=== PATIENT | female | born 1990 | race Hispanic/Latino ===

== ENCOUNTER → 2019-06-18 | Outpatient (CLI) | payer BC, MEDICAID ==
[~2019-06-18] VITALS: Ht 165.1 cm; Wt 87.0 kg
[~2019-06-18] MED LIST: LACTATED RINGERS 1000ML 1,000 ML IV SCH; PNV1TABL17 PO
[2019-06-18 10:13] VITALS: BP 122/71
[2019-06-18 10:19] LABS: BASOPHILS % (AUTO) 0.6 % (0.0-5.0); EOSINOPHILS % (AUTO) 2.7 % (0.0-8.0); HEMATOCRIT 42.5 % (36-48); LYMPHOCYTES % (AUTO) 30.7 % (21.0-51.0); MEAN CORPUSCULAR HEMOGLOBIN 28.2 pg (27.0-33.0); MEAN CORPUSCULAR HGB CONC 33.6 g/dL (32.0-36.0); MEAN CORPUSCULAR VOLUME 83.9 fL (79-99); NUCLEATED RED BLOOD CELLS 0.1 % (0.0-0.19); PLATELET COUNT (AUTO) 181 K/uL (130-400); RED BLOOD CELL COUNT(AUTO) 5.07 MIL/uL (4.00-5.50); RED CELL DISTRIBUTION WIDTH 16.3 % (11.0-15.5); WHITE BLOOD COUNT (AUTO) 5.6 K/uL (4.8-10.8)
== END ==
LOC: DAH 10:00 → EDSTATUS 06-22 13:00
PROVIDERS: ATTEND Specialist
DX: Z01.818 Encounter for other preprocedural examination (principal); Z79.899 Other long term (current) drug therapy
CPT/HCPCS: 36415; 84703; 85025; 86850; 86900; 86901; A6260

== ENCOUNTER 2021-07-01 09:33 | Observation (INO) | payer BC, MEDICAID ==
[~2021-07-01] VITALS: Ht 160 cm; Wt 93.9 kg
[2021-07-01 10:15] LABS: APPEARANCE,URINE Cloudy (CLEAR); BILIRUBIN,URINE Negative (NEGATIVE); COLOR,URINE Dark Yellow (YELLOW); GLUCOSE, URINE (UA) Negative (NEGATIVE); KETONES,URINE Trace mg/dL (NEGATIVE); LEUKOCYTE ESTERASE ,URINE Small (NEGATIVE); NITRATE,URINE Negative (NEGATIVE); OCCULT BLOOD,URINE Negative (NEGATIVE); PH,URINE 6.5 (5.0-8.0); PROTEIN,URINE Trace mg/dL (NEGATIVE)
[2021-07-01 10:36] LABS: BACTERIA,URINE Few /HPF (None Seen); RBC,URINE 0-1 /HPF (0-1)
[2021-07-01] MEDS: LACTATED RINGERS 1000ML 1,000 ML IV SCH ×3 (11:11→23:05)
[2021-07-01] MEDS: DEXAMETHASONE SOD PHOSPHATE 4 MG/ML 1ML VIAL IM SCH ×3 (11:11→22:54)
[2021-07-01] MEDS: GUAIFENESIN-DM 200/20 MG 10 ML PO PRN ×3 (11:50→22:53)
[2021-07-01] MEDS ORDERED: DEXAMETHASONE SOD PHOSPHATE 4 MG/ML 1ML VIAL IM SCH (12:00)
[2021-07-01 12:26] VITALS: BP 112/67
[2021-07-01] MEDS ORDERED: PREN-154 PO (12:37)
[2021-07-01 17:04] VITALS: BP 128/62
[2021-07-01 19:44] VITALS: BP_SYST 110; BP_SYST 120; BP_DIAS 66; BP_DIAS 71
[2021-07-02 00:19] VITALS: BP 121/63
[2021-07-02 03:05] VITALS: BP 113/61
[2021-07-02] MEDS: LACTATED RINGERS 1000ML 1,000 ML IV SCH (03:17)
[2021-07-02] MEDS: DEXAMETHASONE SOD PHOSPHATE 4 MG/ML 1ML VIAL IM SCH (04:39)
[2021-07-02] MEDS: GUAIFENESIN-DM 200/20 MG 10 ML PO PRN (04:56)
[2021-07-02 07:17] VITALS: BP 98/55
== END 2021-07-02 10:00 | disposition home or self-care (01) ==
LOC: LDH 09:33 → WSH 12:10
PROVIDERS: ADMIT Specialist; ATTEND Specialist
DX: O36.8130 Decreased fetal movements, third trimester, not applicable or unspecified (principal); O41.03X0 Oligohydramnios, third trimester, not applicable or unspecified; Z3A.30 30 weeks gestation of pregnancy; Z79.899 Other long term (current) drug therapy
CPT/HCPCS: 59025; 76805; 76819; 81001; 96360; 96361 ×3; 96372 ×2; G0378 ×24; J1100 ×4; J7120 ×5

== ENCOUNTER 2021-07-04 16:42 | Observation (INO) | payer BC, MEDICAID ==
[~2021-07-04] VITALS: Ht 160 cm; Wt 93.4 kg
[~2021-07-04 16:42] MED LIST changes: -LACTATED RINGERS 1000ML 1,000 ML IV SCH; -PNV1TABL17 PO; +PREN-154 PO
[2021-07-04 17:46] LABS: APPEARANCE,URINE Clear (CLEAR); BILIRUBIN,URINE Negative (NEGATIVE); COLOR,URINE Yellow (YELLOW); GLUCOSE, URINE (UA) Negative (NEGATIVE); KETONES,URINE 15 mg/dL (NEGATIVE); LEUKOCYTE ESTERASE ,URINE Negative (NEGATIVE); NITRATE,URINE Negative (NEGATIVE); OCCULT BLOOD,URINE Negative (NEGATIVE); PROTEIN,URINE Negative (NEGATIVE)
[2021-07-04] MEDS: LACTATED RINGERS 1000ML 1,000 ML IV SCH (18:54)
[2021-07-05] MEDS: LACTATED RINGERS 1000ML 1,000 ML IV SCH (02:31)
== END 2021-07-05 08:51 | disposition home or self-care (01) ==
LOC: LDH 16:42
PROVIDERS: ADMIT Specialist; ATTEND Specialist
DX: O36.8130 Decreased fetal movements, third trimester, not applicable or unspecified (principal); Z3A.31 31 weeks gestation of pregnancy
CPT/HCPCS: 59025; 76819; 81003; 96360; 96361 ×2; G0378 ×16; J7120

== ENCOUNTER 2021-07-21 08:26 | Observation (INO) | payer BC, MEDICAID ==
[~2021-07-21] VITALS: Ht 160 cm; Wt 95.3 kg
[2021-07-21 08:57] VITALS: BP 105/52
== END 2021-07-21 09:40 | disposition home or self-care (01) ==
LOC: LDH 08:26
PROVIDERS: ADMIT Specialist; ATTEND Specialist
DX: O36.8330 Maternal care for abnormalities of the fetal heart rate or rhythm, third trimester, not applicable or unspecified (principal); Z3A.33 33 weeks gestation of pregnancy
CPT/HCPCS: 59025; 76819; G0378; G0379

== ENCOUNTER 2021-08-18 10:08 | Observation (INO) | payer BC, MEDICAID | END 2021-08-18 11:17 | disposition home or self-care (01) | LOC: LDH 10:08 | PROVIDERS: ADMIT Specialist; ATTEND Specialist | DX: O41.03X0 Oligohydramnios, third trimester, not applicable or unspecified (principal); Z3A.37 37 weeks gestation of pregnancy | CPT/HCPCS: 59025; 76819; G0378; G0379 ==

== ENCOUNTER 2021-08-23 06:30 | Inpatient (IN) | payer BC, MEDICAID ==
[~2021-08-23] VITALS: Ht 160 cm; Wt 96.6 kg
[2021-08-23] MEDS ORDERED: PROMETHAZINE HCL 25 MG/ML 1ML AMPULE IM PRN (07:00)
[2021-08-23] MEDS ORDERED: LACTATED RINGERS 1000ML 1,000 ML IV PRN (07:00)
[2021-08-23] MEDS ORDERED: MEPERIDINE-PF 50 MG/ML SYG IM PRN (07:00)
[2021-08-23] MEDS ORDERED: ROPIVACAINE 0.2% 100ML VIAL 100 ML EP PRN (07:00)
[2021-08-23] MEDS ORDERED: LACTATED RINGERS 500 ML 500 ML IV PRN (07:00)
[2021-08-23] MEDS ORDERED: NALOXONE HCL 0.4 MG/1 ML ML IV PRN (07:00)
[2021-08-23] MEDS ORDERED: EPHEDRINE SULFATE 50 MG/ML AMPULE IVP PRN (07:00)
[2021-08-23 07:20] LABS: APPEARANCE,URINE CLOUDY (CLEAR); BILIRUBIN,URINE NEGATIVE (NEGATIVE); COLOR,URINE YELLOW (YELLOW); GLUCOSE, URINE (UA) NEGATIVE (NEGATIVE); KETONES,URINE NEGATIVE (NEGATIVE); LEUKOCYTE ESTERASE ,URINE SMALL (NEGATIVE); NITRATE,URINE NEGATIVE (NEGATIVE); OCCULT BLOOD,URINE NEGATIVE (NEGATIVE); PROTEIN,URINE TRACE mg/dL (NEGATIVE); UROBILINOGEN,URINE 0.2 mg/dL (0.2-1.0)
[2021-08-23 07:48] LABS: HEMATOCRIT 31.9 % (36-48); MEAN CORPUSCULAR HGB CONC 31.7 g/dL (32.0-36.0); PLATELET COUNT (AUTO) 174 K/uL (130-400); RED BLOOD CELL COUNT(AUTO) 4.04 MIL/uL (4.00-5.50); RED CELL DISTRIBUTION WIDTH 15.2 % (11.0-15.5); WHITE BLOOD COUNT (AUTO) 6.5 K/uL (4.8-10.8)
[2021-08-23 07:59] LABS: BACTERIA,URINE Few /HPF (None Seen); MUCUS,URINE Few LPF (None Seen); RBC,URINE 0-1 /HPF (0-1); SQUAMOUS EPITHELIAL CELL,UR Moderate /HPF (0-2); WBC,URINE >100 /HPF (0-1)
[2021-08-23] MEDS: OXYTOCIN-LR 20 UNITS/1000 ML 1,000 ML IV SCH ×2 (08:14→16:53)
[2021-08-23] MEDS ORDERED: LANOLIN 30GM OINTMENT TP PRN (15:00)
[2021-08-23] MEDS ORDERED: ACETAMINOPHEN 325 MG TAB PO PRN (15:00)
[2021-08-23] MEDS ORDERED: WITCH HAZEL 1 PAD TP PRN (15:00)
[2021-08-23] MEDS ORDERED: MEASLES/MUMPS/RUBELLA VACCINE, LIVE 0.5 ML/VIAL SQ PRN (15:00)
[2021-08-23] MEDS ORDERED: DIPH,PERTUSS(ACELL),TET VAC/PF 0.5 ML VIAL IM PRN (15:00)
[2021-08-23] MEDS ORDERED: ACETAMINOPHEN WITH CODEINE 1 TAB TAB PO PRN (15:00)
[2021-08-23] MEDS ORDERED: BENZOCAINE/LANOLIN/ALOE VERA 60 ML AEROSOL TP PRN (15:00)
[2021-08-23 18:02] VITALS: BP 95/61
[2021-08-23] MEDS: IBUPROFEN 600 MG TABLET PO PRN (18:21)
[2021-08-23 19:24] VITALS: BP 123/52
[2021-08-23] MEDS: DOCUSATE SODIUM 100 MG CAP PO SCH (20:58)
[2021-08-23 23:03] VITALS: BP 111/69
[2021-08-24] MEDS: IBUPROFEN 600 MG TABLET PO PRN ×2 (01:37→09:28)
[2021-08-24 03:30] VITALS: BP 95/56
[2021-08-24 07:34] VITALS: BP 97/57
[2021-08-24] MEDS: DOCUSATE SODIUM 100 MG CAP PO SCH (09:27)
[2021-08-24 11:23] VITALS: BP 106/59
== END 2021-08-24 15:20 | disposition home or self-care (01) | DRG 807 ==
LOC: LDH 06:30 → WSH 18:01
PROVIDERS: ADMIT Specialist; ATTEND Specialist
PROC: 10E0XZZ Delivery of Products of Conception, External Approach (ICD-10-PCS; principal; 2021-08-23)
DX: O80 Encounter for full-term uncomplicated delivery (principal); Z37.0 Single live birth; Z3A.38 38 weeks gestation of pregnancy
CPT/HCPCS: 36415; 81001; 85027; 86592; 86850; 86900; 86901; 87088; 87340; 90707; 90715; A4314; G0378; J2590; J2795; J7120

== ENCOUNTER 2021-10-25 06:49 | Day surgery (SDC) | payer BC, MEDICAID ==
[2021-10-20 11:18] LABS: BASOPHILS % (AUTO) 0.5 % (0.0-5.0); EOSINOPHILS % (AUTO) 2.3 % (0.0-8.0); HEMATOCRIT 41.9 % (36-48); LYMPHOCYTES % (AUTO) 31.3 % (21.0-51.0); MEAN CORPUSCULAR HEMOGLOBIN 26.5 pg (27.0-33.0); MEAN CORPUSCULAR HGB CONC 31.5 g/dL (32.0-36.0); MEAN CORPUSCULAR VOLUME 84.1 fL (79-99); MONOCYTES % (AUTO) 5.6 % (3.0-13.0); PLATELET COUNT (AUTO) 248 K/uL (130-400); RED BLOOD CELL COUNT(AUTO) 4.98 MIL/uL (4.00-5.50); RED CELL DISTRIBUTION WIDTH 17.1 % (11.0-15.5); WHITE BLOOD COUNT (AUTO) 5.8 K/uL (4.8-10.8)
[2021-10-24 07:46] VITALS: BP 129/82
[2021-10-25] VITALS (17 sets, daily range): BP systolic 110–126; BP diastolic 52–87
[~2021-10-25] VITALS: Ht 160 cm; Wt 91.7 kg
[2021-10-25] MEDS ORDERED: MIDAZOLAM HCL 1 MG/ML 2ML VIAL ONE (07:45)
[2021-10-25] MEDS ORDERED: SUCCINYLCHOLINE 200MG/10ML SYR ONE (07:45)
[2021-10-25] MEDS ORDERED: FENTANYL CITRATE PF 50 MCG/1 ML 2ML VIAL ONE ×2 (07:46→08:26)
[2021-10-25] MEDS ORDERED: PROPOFOL 10 MG/ML 20ML VIAL IV ONE (07:46)
[2021-10-25] MEDS ORDERED: ROCURONIUM 10MG/1ML SYR 10 MG/ML ML ONE (07:46)
[2021-10-25] MEDS ORDERED: ONDANSETRON 4MG INJ ONE (07:48)
[2021-10-25] MEDS ORDERED: LACTATED RINGERS 1000ML 1,000 ML IV SCH (08:00)
[2021-10-25] MEDS ORDERED: DEXAMETHASONE SOD PHOSPHATE 10MG/ML 1ML VIAL ONE (08:24)
[2021-10-25] MEDS ORDERED: ARTIFICIAL TEARS 3.5 GM OINTMENT ONE (08:25)
[2021-10-25] MEDS ORDERED: NEOSTIGMINE 5MG/5ML SYR IV ONE (08:35)
[2021-10-25] MEDS ORDERED: GLYCOPYRROLATE 1 MG/5 ML SYRINGE ONE (08:35)
[2021-10-25] MEDS ORDERED: MEPERIDINE-PF 25 MG/ML SYG ONE ×2 (09:09→09:20)
== END 2021-10-25 10:42 | disposition home or self-care (01) ==
LOC: DAH 06:49
PROVIDERS: ATTEND Specialist
DX: Z30.2 Encounter for sterilization (principal); Z20.822 Contact with and (suspected) exposure to COVID-19; E66.9 Obesity, unspecified; Z79.899 Other long term (current) drug therapy
CPT/HCPCS: 36415 ×2; 58671; 84703; 85025; 86850 ×2; 86900 ×2; 86901 ×2; 87635; A4215 ×2; A4221; A4222; A4223; A4351; A4663; A6260; C1769 ×3; C9803; J0330; J1100; J2175 ×2; J2250; J2405; J2704; J2710; J3010 ×2; J3490; J7120 ×2